=== PATIENT | female | born 1960 | race African-American/Black ===

== ENCOUNTER 2018-09-18 07:40 | Emergency (ER) | payer BC, OTHER ==
[2018-09-18] MEDS ORDERED: Ketorolac Tromethamine 30 MG/ML VIAL ONE (08:11)
[2018-09-18] MEDS ORDERED: Ondansetron PF 4 MG/2 ML Vial ONE (08:11)
[2018-09-18] MEDS ORDERED: Sodium Chloride 0.9% 1,000 ML ONE (08:11)
[2018-09-18 08:18] LABS: #Basophils 0.1 thou/uL (0.0-0.2); #Eosinphils 0.1 thou/uL (0.0-0.7); #Lymphocytes 1.7 thou/uL (1.20-3.40); #Monocytes 0.3 thou/uL (0.11-0.59); #Neutrophils 3.4 thou/uL (1.40-6.50); %Eosinophils 1.7 % (0.0-10.0); %Lymphocytes 30.6 % (21.0-51.0); %Monocytes 5.4 % (0.0-10.0); %Neutrophils 61.3 % (42.0-75.0); Hemoglobin 13.6 g/dL (12.0-16.0); Mean Corpuscular HGB CONC 33.2 g/dL (32.0-36.0); Mean Corpuscular Hemoglobin 27.5 pg (27.0-31.0); Mean Corpuscular Volume 82.9 fL (78.0-98.0); Mean Platelet Volume 9.7 fL (7.4-10.4); Platelet Count 235 thou/uL (130-400); Red Blood Cell (RBC) Count 4.96 mill/uL (4.20-5.40); White Blood Cell (WBC) Count 5.6 thou/uL (4.8-10.8)
[2018-09-18 08:37] LABS: ALT (SGPT) 17 U/L (8-55); AST (SGOT) 25 U/L (5-34); Albumin 4.5 g/dL (3.5-5.0); Alkaline Phosphatase 107 U/L (40-150); Anion Gap 17 mmol/L (10-20); BUN (Urea Nitrogen) 18 mg/dL (9.8-20.1); Bilirubin, Total 0.3 mg/dL (0.2-1.2); Calc. Creatinine Clearance 0 mL/min (70-130); Carbon Dioxide 22 mmol/L (22-29); Chloride 109 mmol/L (98-107); Estimated GFR-MDRD 58; Globulin 3.4 g/dL (2.4-3.5); Glucose 127 mg/dL (70-105); Potassium 4.9 mmol/L (3.5-5.1); Protein, Total 7.9 g/dL (6.0-8.3); Sodium 143 mmol/L (136-145)
--- NOTE | 2018-09-18 08:46 | CT ---
CT Stone Protocol History: Left flank pain Comparison: None. Findings: Lung bases are clear. No pericardial effusion. Moderate left hydroureteronephrosis due to a partially obstructing calculus left distal ureter measur ing 2 x 3 mm 1 cm from the ureterovesicular junction. No other calculi within the left renal collecting system. Right renal collecting system is without calculus. No dilated loops of large or small bowel. No retroperitoneal periaortic adenopathy. Impression: Partially obstructing calculus left distal ureter measuring 2 x 3 mm 1 cm from the ureter ovesicular junction.
[2018-09-18 08:58] LABS: Bilirubin Negative (Negative); Blood, Urine Trace (Negative); Clarity Clear (Clear); Glucose, Urine (Dipstick) Negative (Negative); Leukocyte Negative (Negative); Nitrite Negative (Negative); Protein, Urine (Dipstick) Negative (Neg-Trace); Urobilinogen 0.2 mg/dL (Less than 2)
[2018-09-18] MEDS ORDERED: Acetaminophen/Codeine 30-300mg Tablet ONE (09:17)
== END 2018-09-18 09:45 | disposition home or self-care (01) ==
LOC: MADERS 07:40
DX: N13.2 Hydronephrosis with renal and ureteral calculous obstruction (principal)
CPT/HCPCS: 36415; 74176; 80053; 81003; 85025; 87086; 96361; 96374; 96375; J1885; J2405; J7050

== ENCOUNTER 2021-07-07 18:13 | Emergency (ER) | payer SELFPAY ==
[2021-07-07] MEDS ORDERED: Ondansetron ODT 4 MG TAB ONE (19:30)
[2021-07-07] MEDS ORDERED: traMADol HCl 50 MG TAB ONE (19:30)
== END 2021-07-07 20:00 | disposition home or self-care (01) ==
LOC: MADERS 18:13
DX: S16.1XXA Strain of muscle, fascia and tendon at neck level, initial encounter (principal); S39.012A Strain of muscle, fascia and tendon of lower back, initial encounter; V89.2XXA Person injured in unspecified motor-vehicle accident, traffic, initial encounter
CPT/HCPCS: 70450; 71045; 72125; Q0162